=== PATIENT | male | born 1965 | race Caucasian/White ===

== ENCOUNTER 2018-05-21 01:42 | Emergency (ER) | payer MEDICAID ==
[~2018-05-21] VITALS: Ht 188 cm; Wt 147.7 kg
[2018-05-21] MEDS ORDERED: FAMOTIDINE 20 MG TABLET ONE (02:25)
[2018-05-21] MEDS ORDERED: ONDANSETRON ODT 4 MG ONE (02:25)
[2018-05-21] MEDS ORDERED: MAALOX/HYOSCYAMINE/LIDOCAINE 45 ML BTL ONE (02:25)
[2018-05-21] MEDS ORDERED: ONDANSETRON ODT 4 MG PO ONE (02:30)
[2018-05-21] MEDS ORDERED: FAMOTIDINE 20 MG TABLET PO ONE (02:30)
[2018-05-21] MEDS ORDERED: MAALOX/HYOSCYAMINE/LIDOCAINE 45 ML BTL PO ONE (02:30)
[2018-05-21 02:34] LABS: BASOPHILS # (AUTO) 0.04 x10^3/uL (0-0.1); BASOPHILS % (AUTO) 0 % (0-1); EOSINOPHILS # (AUTO) 0.27 x10^3/uL (0-0.4); EOSINOPHILS % (AUTO) 3 % (1-7); LYMPHOCYTES # (AUTO) 2.17 x10^3/uL (1-3.4); LYMPHOCYTES % (AUTO) 22 % (22-44); MD NO; MEAN CORPUSCULAR HEMOGLOBIN 30.6 pg (27.5-34.5); MEAN CORPUSCULAR HGB CONC 34.5 g/dL (33.2-36.2); MEAN CORPUSCULAR VOLUME 88.6 fL (81-97); MEAN PLATELET VOLUME 8.6 fL (7.4-10.4); MONOCYTES # (AUTO) 0.66 x10^3/uL (0.2-0.8); MONOCYTES % (AUTO) 7 % (2-9); NEUTROPHILS # (AUTO) 6.76 x10^3/uL (1.8-6.8); NEUTROPHILS % (AUTO) 68 % (42-75); PLATELET COUNT 271 x10^3/uL (130-400); RED BLOOD COUNT 4.68 x10^6/uL (4.38-5.82); RED CELL DISTRIBUTION WIDTH 14.1 % (9.4-14.8)
[2018-05-21 02:41] LABS: ALBUMIN 3.2 g/dL (3.4-5.0); ANION GAP 7 mmol/L (5-15); CALCIUM 8.4 mg/dL (8.5-10.1); CHLORIDE 107 mmol/L (98-107)
[2018-05-21 02:44] LABS: ALANINE AMINOTRANSFERASE 24 U/L (12-78); ALKALINE PHOSPHATASE 89 U/L (45-117); BILIRUBIN,TOTAL 0.4 mg/dL (0.2-1.0); CREATININE 1.21 mg/dL (0.7-1.3); TOTAL PROTEIN 6.8 g/dL (6.4-8.2)
[2018-05-21 02:56] LABS: MICROSCOPIC NOT IND
[2018-05-21 03:11] LABS: CULTURE INDICATED? NO
[2018-05-21 03:39] VITALS: BP 145/88
== END 2018-05-21 03:41 | disposition home or self-care (01) ==
LOC: ED 03:35
DX: K29.00 Acute gastritis without bleeding (principal); Z90.49 Acquired absence of other specified parts of digestive tract
CPT/HCPCS: 36415; 80053; 81003; 83690; 85025; 99284; Q0162

== ENCOUNTER 2020-04-15 20:37 | Emergency (ER) | payer MEDICAID, OTHER ==
[~2020-04-15] VITALS: Ht 188 cm; Wt 161.2 kg
--- NOTE | 2020-04-15 20:48 | NUR ---
CLINICAL SCREEN EDITED TO ADD [facility] ONLY
--- NOTE | 2020-04-15 20:52 | NUR ---
PT AMBUALTORY TO BATHROOM, STEADY GAIT.
[2020-04-15] MEDS ORDERED: ONDANSETRON 2MG/ML, 2ML ONE (21:06)
[2020-04-15] MEDS ORDERED: MORPHINE SULFATE 4 MG/ML, 1ML ONE (21:06)
--- NOTE | 2020-04-15 21:20 | NUR ---
PT LAYING IN BED, CONVERSING WITH THIS RN, NO SIGNS OF ACUTE DISTRESS. BEDRAILS UP X2, CALL LIGHT IN REACH. ALL NEEDS MET AT THIS TIME.
[2020-04-15 21:30] LABS: BASOPHILS # (AUTO) 0.03 x10^3/uL (0-0.1); BASOPHILS % (AUTO) 0 % (0-1); EOSINOPHILS # (AUTO) 0.23 x10^3/uL (0-0.4); EOSINOPHILS % (AUTO) 2 % (1-7); LYMPHOCYTES # (AUTO) 2.14 x10^3/uL (1-3.4); LYMPHOCYTES % (AUTO) 19 % (22-44); MD NO; MEAN CORPUSCULAR HEMOGLOBIN 30.5 pg (27.5-34.5); MEAN CORPUSCULAR VOLUME 89.9 fL (81-97); MEAN PLATELET VOLUME 8.4 fL (7.4-10.4); MONOCYTES % (AUTO) 7 % (2-9); NEUTROPHILS # (AUTO) 7.88 x10^3/uL (1.8-6.8); NEUTROPHILS % (AUTO) 71 % (42-75); PLATELET COUNT 297 x10^3/uL (130-400); RED BLOOD COUNT 4.54 x10^6/uL (4.38-5.82); RED CELL DISTRIBUTION WIDTH 13.8 % (9.4-14.8)
[2020-04-15] MEDS ORDERED: MORPHINE SULFATE 4 MG/ML, 1ML IVPush ONE (21:30)
[2020-04-15] MEDS ORDERED: ONDANSETRON 2MG/ML, 2ML IVPush ONE (21:30)
[2020-04-15 21:36] LABS: MICROSCOPIC NOT IND
[2020-04-15 21:42] LABS: ANION GAP 5 mmol/L (5-15); CHLORIDE 112 mmol/L (98-107)
[2020-04-15 21:45] LABS: ALANINE AMINOTRANSFERASE 26 U/L (12-78); ALKALINE PHOSPHATASE 83 U/L (45-117); BILIRUBIN,TOTAL 0.4 mg/dL (0.2-1.0); CREATININE 1.24 mg/dL (0.7-1.3); TOTAL PROTEIN 6.7 g/dL (6.4-8.2)
[2020-04-15] MEDS ORDERED: OMNIPAQUE 350 MG/ML, 150 ML BOTTLE ONE (22:23)
[2020-04-15 23:19] VITALS: BP 128/78
== END 2020-04-15 23:25 | disposition home or self-care (01) ==
LOC: ED 21:59
DX: R10.31 Right lower quadrant pain (principal); R10.11 Right upper quadrant pain; R11.0 Nausea; R19.7 Diarrhea, unspecified; Z90.49 Acquired absence of other specified parts of digestive tract
CPT/HCPCS: 36415; 74177; 80053; 81003; 83690; 85025; 96374; 96375; 99285; J2270; J2405; Q9967

== ENCOUNTER 2020-07-23 14:26 | Emergency (ER) | payer OTHER ==
[~2020-07-23] VITALS: Ht 188 cm; Wt 155.0 kg
[2020-07-23 14:36] VITALS: BP 157/84
== END 2020-07-23 16:49 | disposition home or self-care (01) ==
LOC: ED 16:40
DX: B34.9 Viral infection, unspecified (principal); R06.02 Shortness of breath; R09.81 Nasal congestion; J02.9 Acute pharyngitis, unspecified; M79.10 Myalgia, unspecified site; R05 Cough; R50.9 Fever, unspecified
CPT/HCPCS: 71045; 87635; 99283; 99284